=== PATIENT | male | born 1975 | race Caucasian/White ===

== ENCOUNTER → 2017-03-17 | Outpatient (CLI) | payer BC | END | disposition home or self-care (01) | LOC: C.NEUR 10:00 | DX: R06.83 Snoring (principal) ==

== ENCOUNTER → 2017-07-22 | Outpatient (CLI) | payer BC ==
[~2017-07-22] MED LIST: ASTIN/15 NAE; FLUT0.15; MONT1TAB3 PO
[2017-07-22 17:24] LABS: BASO % 0.6 %; BASO ABS # 0.04 K/uL (0-0.2); EOS % 2.9 %; EOS ABS # 0.18 K/uL (0-0.5); HEMATOCRIT 43.7 % (42-52); HEMOGLOBIN 14.7 g/dL (14.0-18.0); IG# 0.01 K/uL (0.00-0.02); INR 0.9 (0.9-1.1); LYMPH % 44.7 %; LYMPH ABS # 2.81 K/uL (1.2-3.4); MEAN CELL VOLUME 86.4 fL (80-100); MEAN CORPUSCULAR HEMOGLOBIN 29.1 pg (25-34); MEAN CORPUSCULAR HGB CONC 33.6 g/dl (32-36); MEAN PLATELET VOLUME 8.4 fL (7.4-10.4); MONO % 6.1 %; MONO ABS # 0.38 K/uL (0.11-0.59); NEUT % 45.5 %; NEUT ABS # 2.86 K/uL (1.4-6.5); PLATELET COUNT 244 K/uL (130-400); PTT PATIENT 25.5 SECONDS (21.0-31.0); RED CELL DISTRIBUTION WIDTH CV 13.3 % (11.5-14.5); WHITE BLOOD COUNT 6.28 K/uL (4.8-10.8)
[2017-07-22 17:50] LABS: POTASSIUM 4.2 mmol/L (3.5-5.1)
== END | disposition home or self-care (01) ==
LOC: C.LABPBG 12:21
DX: Z01.818 Encounter for other preprocedural examination (principal)

== ENCOUNTER → 2017-07-27 | Day surgery (SDC) | payer BC ==
[2017-07-09 10:21] VITALS: Ht 188 cm; Wt 90.9 kg
[~2017-07-27] VITALS: Ht 188 cm; Wt 90.9 kg
[~2017-07-27] MED LIST changes: +ATROPINE SULFATE 0.1 MG/ML 5ML SYR IV PRN; +CEFAZOLIN 2000MG IV PUSH 15 ML IV SCH; +DEXAMETHASONE SOD INJ 4 MG/ML VIAL ONE; +DiphenhydrAMINE HCL 50 MG/ML VIAL ONE; +EpHEDrine SULFATE INJ 50 MG/ML AMP IV PRN; +EpINEphrine INJ 1MG/ML AMP 1 MG/ML AMP ONE; +FENTANYL CITRATE INJ 50 MCG/1 ML 2 ML VIAL IV PRN; +FENTANYL CITRATE INJ 50 MCG/1 ML 2 ML VIAL ONE; +GLYCOPYRROLATE INJ 0.2 MG/ML VIAL ONE; +HYDROCODONE/ACETAMIN 5/325MG TAB ONE; +HYDROCODONE/ACETAMIN 5/325MG TAB PO PRN; +LACTATED RINGER'S 1000ML 1,000 ML IV SCH; +LIDOCAINE 4% MPF SOAK 5 ML = 1 DOSE TOP ONE; +LIDOCAINE HCL 2% 2 ML VIAL (20MG/ML) ONE; +LIDOCAINE/EPINEPHRINE 1% 20 ML VIAL ONE; +MIDAZOLAM HCL 1 MG/ML 2ML VIAL ONE; +NEOSTIGMINE METHYLSULFATE 5 MG/5 ML SYR ONE; +ONDANSETRON INJ 2 MG/ML 2 ML VIAL IV PRN; +ONDANSETRON INJ 2 MG/ML 2 ML VIAL ONE; +OXYMETAZOLINE HCL 0.05% NA SPR 15 ML BTL NAE SCH; +OXYMETAZOLINE HCL 0.05% NA SPR 15 ML BTL PRN; +PROPOFOL IV EMULSION 10 MG/ML 20 ML VIAL IV ONE; +ROCURONIUM BROMIDE 10 MG/ML 5 ML VIAL IV ONE; +TRIAMCINOLONE ACET 40 MG/ML VIAL ONE
--- NOTE | 2017-07-27 09:54 | History and Physical: Surg Cnt ---
History & Physical Date Jul 27, 2017. Chief Complaint SINUSITIS History of Present Illness The patient is a 41 year old male with complaints of CHRONIC SINUSITIS, SEPTAL DEVIATION, AND BILATERAL INFERIOR TURBINATE HYPERTROPHY WITH SYMPTOMS DESPITE MAXIMAL MEDICAL RX. Past Medical/Surgical History PMH: ABOVE, ALLERGIC RHINITIS PSH: S/P KNEE SURGERY Additional History Hepatic Disease: No Endocrine Disorder: No Kidney Disease: No Hypertension: No Heart Disease: No Bleeding Tendencies: No Infectious Diseases: No Allergies Coded Allergies: No Known Allergies (Unverified , 07/27/17) Home Medications Scheduled Azelastine HCl (Astepro), 2 SPRAYS LIZZETH BID Fluticasone Propionate (Nasal) (Flonase Allergy Relief), 2 SPRAYS NA DAILY Montelukast Sodium (Singulair), 10 MG PO HS Physical Examination Skin: warm/dry, no rash Eyes: normal inspection, EOMI, sclerae normal ENT: + pertinent finding (L>R DNS, R>L ITH) Head: normocephalic, atraumatic Neck: supple, no adenopathy, trachea midline Respiratory/Chest: lungs clear, normal breath sounds, no respiratory distress Cardiovascular: regular rate, rhythm, no edema, no murmur Neurologic/Psych: no motor/sensory deficits, alert, normal reflexes, oriented x 3 Diagnosis CHRONIC SINUSITIS, SEPTAL DEVIATION, BILATERAL INFERIOR TURBINATE HYPERTROPHY Plan of Treatment IMAGE-GUIDED B FESS AND INFERIOR TURBINATE REDUCTION, SEPTOPLASTY
--- NOTE | 2017-07-27 11:15 | [facility] Operative Report ---
Operative Report Operative Date Jul 27, 2017. Pre-Operative Diagnosis Chronic Sinusitis ,Septal Deviation, Bilateral Inferior Turbinate Hypertrophy Post-Operative Diagnosis same Procedure(s) Performed IMAGE-GUIDED BILATERAL FESS AND INFERIOR TURBINATE REDUCTION, SEPTOPLASTY Surgeon Dr. Yanelis Gurrola Call Center Nurse Surgeon(s) 0 Estimated Blood Loss 50ML Findings 1. SEVERE L DNS WITH SEPTAL SPUR FORMATION 2. R>L ITH 3. POLYPOID MUCOSAL THICKENING INVOLVING ALL PARANASAL SINUSES BILATERALLY Anesthesia Type General I attest to the content of the Intraoperative Record and any orders documented therein. Any exceptions are noted below.
--- NOTE | 2017-07-27 11:17 | Discharge Instructions ---
Discharge Instructions Date of Service Jul 27, 2017. Admission Reason for Admission: Chronc Sinusitis, Deviated Septum, Allergic Rhinit Discharge Discharge Diagnosis / Problem: SAME Discharge Goals Goal(s): Therapeutic intervention Activity Recommendations Activity Limitations: as noted below LIGHT ACTIVITY AND NO NOSE BLOWING FOR 2 WEEKS; NO DRIVING WHILE ON NORCO . Current Hospital Diet Patient's current hospital diet: Discharge Diet Recommended Diet: Regular Diet Procedures Procedures Performed: Bilateral Image Guided Endoscopic Sinus Surgery, Septoplasty, Bilateral Inferior Turbinate Reduction, Right Sarah Bullosa Resection Pending Studies Studies pending at discharge: no Medical Emergencies . Who to Call and When: Medical Emergencies: If at any time you feel your situation is an emergency, please call 911 immediately. . Non-Emergent Contact Non-Emergency issues call your: Surgeon . . "Provider Documentation" section prepared by Bienvenido Gurrola. .
[2017-07-27] MEDS: FENTANYL CITRATE INJ 50 MCG/1 ML 2 ML VIAL IV PRN ×2 (11:48→11:56)
--- NOTE | 2017-07-27 12:24 | OPERATIVE REPORT ---
DATE OF OPERATION: 07/27/2017 PREOPERATIVE DIAGNOSES: 1. Chronic rhinosinusitis. 2. Left greater than right septal deviation. 3. Right greater than left inferior turbinate hypertrophy. 4. Right martin bullosa. POSTOPERATIVE DIAGNOSES: 1. Chronic rhinosinusitis. 2. Left greater than right septal deviation. 3. Right greater than left inferior turbinate hypertrophy. 4. Right martin bullosa. PROCEDURES: [employer] fusion image guided bilateral endoscopic sinus surgery consisting of: 1. Endoscopic right martin bullosa resection. 2. Bilateral maxillary antrostomies. 3. Bilateral complete ethmoidectomies. 4. Bilateral balloon sinuplasty assisted frontal sinusotomies. 5. Bilateral sphenoidotomies. 6. Septoplasty. 7. Bilateral inferior turbinate outfracture and turbinoplasty. SURGEON: Bienvenido Gurrola MD ANESTHESIA: General endotracheal. ESTIMATED BLOOD LOSS: 50 mL. FINDINGS: 1. Severe left septal deviation with bony septal spur. 2. Small right martin bullosa. 3. Right greater than left inferior turbinate hypertrophy. 4. Polypoid mucosal thickening involving all the paranasal sinuses bilaterally. SPECIMENS: None. COMPLICATIONS: None. INDICATIONS FOR THE PROCEDURE: The patient is a 41-year-old male with chronic polypoid rhinosinusitis, which has been unresponsive to maximal medical therapy including systemic antibiotics, systemic steroids, topical steroids, and allergy medications. The patient's posttreatment fusion CT scan of the sinuses revealed pansinusitis, left septal deviation, and right greater than left inferior turbinate hypertrophy with a small right martin bullosa. He presents for the above-mentioned procedures on an outpatient elective basis. DESCRIPTION OF PROCEDURE: After informed consent had been obtained from the patient, the patient was wheeled to the operating room and placed on the operating table in the supine position. Monitors were placed. After induction of general endotracheal anesthesia, the patient was prepped in the usual fashion for image guided endoscopic sinus surgery. The [employer] fusion headset was placed over the forehead and was registered, calibrated, and verified and used for the entire case, but primarily the frontal and sphenoid sinus portions. Lidocaine and epinephrine soaked pledgets were placed in the bilateral nasal cavities and pressure applied. The right-sided pledgets were first removed. A freer elevator was used to medialize the middle turbinate. The middle turbinate and lateral nasal wall were injected with 1% lidocaine with 1:100,000 epinephrine. A lidocaine and epinephrine pledget was then placed into the right middle meatus. The left side was then addressed in a similar fashion. The right-sided pledget was removed. A sickle knife was used to incise the right middle turbinate longitudinally and the lateral half of the middle turbinate was removed using straight Prem-Cut forceps and powered instrumentation to perform an endoscopic martin bullosa resection. An uncinatectomy was then performed using a freer elevator, straight Prem-Cut forceps, and powered instrumentation. The natural ostium of the right maxillary sinus was identified and this was enlarged anteriorly, inferiorly, and posteriorly using backbiting forceps and powered instrumentation. A complete ethmoidectomy was then performed using powered instrumentation. Transethmoid approach to the sphenoid sinus was then undertaken and the sphenoidotomy was performed enlarging the natural ostia of the sphenoid sinus medially and inferiorly using powered instrumentation. A curved frontal sinus suction was then used to enter the right frontal sinus. This was then removed and a #6 frontal sinus balloon was inserted into the right frontal sinus and dilated to 12 atmospheres of pressure to dilate the frontal recess tract in 2 different locations. Powered instrumentation was then used to remove polypoid tissue from the frontal recess. The left side was then addressed in a similar fashion except there was not a martin bullosa on that side. The nasal septum was then injected with 1% lidocaine with 1:100,000 epinephrine. Lidocaine and epinephrine pledgets were placed in bilateral nasal cavities and pressure applied. Pledgets were then removed. A #15 scalpel was used to make a left para-John incision, through which the left-sided mucoperichondrial and mucoperiosteal flaps were elevated. A #15 scalpel was then used to incise the quadrangular cartilage with care to preserve a 1.5-cm dorsal and caudal strut and a right-sided mucoperichondrial and mucoperiosteal flaps were elevated through this cartilaginous incision. A Andre swivel knife was then used to remove the deviated portion of the quadrangular cartilage, which was impinging on the airway to the left hand side primarily. A V-shaped osteotome, mallet, and Chucho forceps were then used to remove a large bony septal spur, which was impinging on the airway posteriorly to the left hand side. After removal of the septal bone, the septum was found to be midline. The septal cavity was suctioned. The left para-John incision was closed with several simple interrupted 4-0 chromic sutures. A 4-0 plain gut suture on a Hector needle was then used to perform a quilting stitch of the mucoperichondrial and mucoperiosteal flaps bilaterally to help prevent septal hematoma. A H[place]on elevator was then used to infracture and subsequently outfracture the inferior turbinates bilaterally. These were injected with 1% lidocaine with 1:100,000 epinephrine. A 2.0-mm turbinate blade using powered instrumentation was then used to perform bilateral inferior turbinoplasties in the submucosal fashion. The sinonasal cavities were then suctioned. Stammberger nasal dressing admixed with Kenalog 40 mg per mL was instilled into the bilateral ethmoid cavity/middle meati. An orogastric tube was placed and the stomach was suctioned free any stomach contents. This marked the end the case. The patient tolerated the procedure well. There were no apparent complications. The patient was extubated and transferred to recovery room in stable condition. I attest to the content of the Intraoperative Record and any orders documented therein. Any exception s are noted below.
[2017-07-27 12:30] VITALS: TEMP 36.5
--- NOTE | 2017-07-27 13:10 | Anesthesia Progress Nt - [facility] ---
Anesthesia Post Op Note Date & Time Jul 27, 2017 at 13:10 Vital Signs Pain Intensity: 5 Vital Signs Past 12 Hours Date Time Temp Pulse Resp B/P (MAP) Pulse Ox O2 Delivery O2 Flow Rate FiO2 07/27/17 12:30 36.5 60 16 132/77 (95) 99 Room Air 07/27/17 12:21 57 13 99 07/27/17 12:21 57 13 07/27/17 12:20 130/75 07/27/17 12:19 36.4 57 14 130/75 100 Room Air 07/27/17 12:16 58 16 07/27/17 12:16 59 16 98 07/27/17 12:15 135/81 07/27/17 12:11 59 12 07/27/17 12:11 58 12 138/89 95 07/27/17 12:06 62 16 141/89 98 07/27/17 12:06 61 16 07/27/17 12:01 65 14 07/27/17 12:01 67 14 97 07/27/17 12:00 128/88 07/27/17 11:56 59 15 07/27/17 11:56 60 15 142/87 100 07/27/17 11:51 55 14 07/27/17 11:51 55 14 148/84 100 07/27/17 11:46 61 11 07/27/17 11:46 61 11 138/81 100 07/27/17 11:41 62 14 100 07/27/17 11:41 62 14 07/27/17 11:40 154/95 07/27/17 11:36 69 9 07/27/17 11:36 68 9 152/84 100 07/27/17 11:31 75 12 100 07/27/17 11:31 74 12 07/27/17 11:30 155/90 07/27/17 11:27 162/77 07/27/17 11:26 93 07/27/17 11:26 93 98 07/27/17 11:26 36.3 86 12 162/77 99 Humidified Oxygen 6 Mask 07/27/17 08:41 36.7 73 20 134/84 (101) 100 Room Air Notes Mental Status: alert / awake / arousable, participated in evaluation Pt Amnestic to Procedure: Yes Nausea / Vomiting: adequately controlled Pain: adequately controlled Airway Patency, RR, SpO2: stable & adequate BP & HR: stable & adequate Hydration State: stable & adequate Anesthetic Complications: no major complications apparent
[2017-07-27 13:16] VITALS: BP 145/93; PULSE 63; O2SAT 100
== END | disposition home or self-care (01) ==
LOC: X.SURG 08:25
DX: J32.9 Chronic sinusitis, unspecified (principal); J34.2 Deviated nasal septum; J34.3 Hypertrophy of nasal turbinates; J34.89 Other specified disorders of nose and nasal sinuses